=== PATIENT | male | born 1975 | race Caucasian/White ===

== ENCOUNTER 2020-02-04 12:04 | Emergency (ER) | payer MEDICARE, MEDICAID ==
[~2020-02-04] VITALS: Ht 180.3 cm; Wt 99.8 kg
[2020-02-04 14:12] VITALS: BP 131/84
== END 2020-02-04 14:17 | disposition home or self-care (01) ==
LOC: M.ERS 12:04
DX: U07.1 COVID-19 (principal); F32.9 Major depressive disorder, single episode, unspecified; F98.8 Other specified behavioral and emotional disorders with onset usually occurring in childhood and adolescence

== ENCOUNTER 2020-02-14 17:18 | Emergency (ER) | payer MEDICARE, MEDICAID ==
[~2020-02-14] VITALS: Ht 177.8 cm; Wt 104.3 kg
[2020-02-14 18:40] VITALS: BP 134/92
== END 2020-02-14 18:58 | disposition home or self-care (01) ==
LOC: M.ERS 17:18
DX: Z20.828 Contact with and (suspected) exposure to other viral communicable diseases (principal); F98.8 Other specified behavioral and emotional disorders with onset usually occurring in childhood and adolescence; F32.9 Major depressive disorder, single episode, unspecified